=== PATIENT | female | born 1945 | race African-American/Black ===

== ENCOUNTER 2021-01-09 09:26 | Outpatient (CLI) | payer MEDICARE | END 2021-01-09 09:27 | disposition home or self-care (01) | LOC: CSHULT 09:26 | PROVIDERS: ATTEND Internal Medicine Hematology & Oncology | DX: M79.602 Pain in left arm (principal); R60.0 Localized edema; T82.598A Other mechanical complication of other cardiac and vascular devices and implants, initial encounter | CPT/HCPCS: 36598; J1642 ==

== ENCOUNTER 2022-07-01 09:32 | Outpatient (CLI) | payer MEDICARE | END 2022-07-01 09:33 | disposition home or self-care (01) | LOC: CSHCT 09:32 | PROVIDERS: ATTEND Internal Medicine Hematology & Oncology | DX: C50.812 Malignant neoplasm of overlapping sites of left female breast (principal); C78.01 Secondary malignant neoplasm of right lung; R91.1 Solitary pulmonary nodule | CPT/HCPCS: 71260; 74177; 82565 ==

== ENCOUNTER 2023-01-06 08:55 | Outpatient (CLI) | payer MEDICARE | END 2023-01-06 08:56 | disposition home or self-care (01) | LOC: CSHCT 08:55 | PROVIDERS: ATTEND Internal Medicine Hematology & Oncology | DX: C50.812 Malignant neoplasm of overlapping sites of left female breast (principal); C78.01 Secondary malignant neoplasm of right lung; R91.1 Solitary pulmonary nodule | CPT/HCPCS: 71260; 74177; 82565 ==

== ENCOUNTER 2023-07-21 08:52 | Outpatient (CLI) | payer MEDICARE | END 2023-07-21 08:53 | disposition home or self-care (01) | LOC: CSHCP 08:52 | PROVIDERS: ATTEND Physician Assistant | DX: R91.1 Solitary pulmonary nodule (principal); Z85.3 Personal history of malignant neoplasm of breast; R94.2 Abnormal results of pulmonary function studies; R06.09 Other forms of dyspnea | CPT/HCPCS: 94010; 94726; 94729; 94760 ==